=== PATIENT | male | born 1970 | race Caucasian/White ===

== ENCOUNTER → 2018-06-10 | Outpatient (CLI) | payer OTHER ==
[~2018-06-10] MED LIST: ACETAMINOPHEN-1 EACH; CYCLOBENZAPRINE10 MG PO; DUONEB 2.5-0.5 M3 ML INH; HYDROMORPHONE; OXYCODONE-ACET1 EAC4 PO
== END ==
LOC: CAT 14:52
DX: Z13.6 Encounter for screening for cardiovascular disorders (principal); E78.00 Pure hypercholesterolemia, unspecified; I25.10 Atherosclerotic heart disease of native coronary artery without angina pectoris

== ENCOUNTER → 2018-06-10 | Outpatient (CLI) | payer OTHER | LOC: RAD 14:10 | DX: M54.89 Other dorsalgia (principal); K31.89 Other diseases of stomach and duodenum ==